=== PATIENT | female | born 1960 ===

== ENCOUNTER 2017-03-07 14:34 | Emergency (ER) | payer OTHER ==
[2017-03-07 14:58] VITALS: BMI 27.4
[2017-03-07] MEDS ORDERED: Sodium Chloride 0.9% 1,000 ML IV STA (15:13)
--- NOTE | 2017-03-07 15:13 | C.PDOC ---
History Of Present Illness 56 y/o F c no PMHx p/w abdominal pain x 8 days. Pain is LLQ, radiates to L flank , constant, moderate in severity, associated with mild nausea and allievated by urination. Denies fever, chills, vomiting, dyspnea, diarrhea, vaginal bleeding, bloody or black stool, dysuria. No PMD Time Seen by Provider: 03/07/17 15:06 Chief Complaint (Nursing): Abdominal Pain Past Medical History Vital Signs: Last Vital Signs Temp 97.5 F L 03/07/17 16:57 Pulse 78 03/07/17 16:57 Resp 18 03/07/17 16:57 BP 112/63 03/07/17 16:57 Pulse Ox 99 03/07/17 16:57 Family History: States: No Known Family Hx - Social History Hx Alcohol Use: No Hx Substance Use: No - Immunization History Hx Tetanus Toxoid Vaccination: No Hx Influenza Vaccination: No Hx Pneumococcal Vaccination: No Review Of Systems Except As Marked, All Systems Reviewed And Found Negative. Constitutional: Negative for: Fever Cardiovascular: Negative for: Chest Pain Physical Exam - Physical Exam Additional Physical Exam Comments: Constitutional: No acute distress. Head: Normocephalic. Atraumatic. Eyes: PERRL. EOMI. ENT: Moist mucous membranes. Neck: Supple. Cardiovascular: Regular rate. Radial pulses 2+ bilaterally. Chest: No tenderness. Respiratory: Clear to auscultation bilaterally. GI: Soft. LLQ/Suprapubic tenderness. Back: No CVA tenderness. Musculoskeletal: No tenderness or swelling of extremities. Skin: No rash. Neurologic: Alert, no focal deficit. ED Course And Treatment - Laboratory Results Result Diagrams: 03/07/17 15:31 03/07/17 15:31 O2 Sat by Pulse Oximetry: 100 Medical Decision Making Medical Decision Making: IMPRESSION: Diverticulosis of the rectosigmoid colon with mild associated inflammatory stranding may represent acute diverticulitis. Patient in no acute distress. Labs unremarkable. Vital signs normal. Will discharge home, antibiotics, f/u PMD, return to ED for worsening abdominal pain , vomiting, dyspnea, or fever. Disposition - Disposition Disposition: HOME/ ROUTINE Disposition Time: 17:50 Condition: STABLE Prescriptions: levoFLOXacin [Levaquin] 1 tab PO DAILY #10 tab Metronidazole [Flagyl] 500 mg PO Q8 #30 tab Instructions: Diverticulitis (ED) Forms: [employer] (Georgian) - Clinical Impression Clinical Impression: Diverticulitis
[2017-03-07] MEDS ORDERED: Sodium Chloride 0.9% 1,000 ML ONE (15:19)
[2017-03-07 15:36] LABS: BASO # 0.1 K/uL (0.0-0.2); BASO % 1.1 % (0.0-2.0); EOS # 0.9 K/uL (0.0-0.7); EOS % 11.8 % (0.0-4.0); HEMOGLOBIN 12.6 g/dL (11.0-16.0); LYMPH # 2.2 K/uL (1.0-4.3); LYMPH % 29.8 % (20.0-40.0); MEAN CELL VOLUME 86.3 fL (81.0-99.0); MEAN CORPUSCULAR HEMOGLOBIN 29.4 pg (27.0-31.0); MEAN CORPUSCULAR HGB CONC 34.1 g/dL (33.0-37.0); MONO # 0.5 K/uL (0.0-0.8); MONO % 6.6 % (0.0-10.0); NEUT # 3.8 K/uL (1.8-7.0); NEUT % 50.7 % (50.0-75.0); NRBC % 0.1 % (0.0-2.0); RBC 4.3 Mil/uL (3.80-5.20); RED CELL DISTRIBUTION WIDTH 12.6 % (11.5-14.5); WHITE BLOOD COUNT 7.4 K/uL (4.8-10.8)
[2017-03-07 15:40] LABS: HCG,QUALITATIVE URINE NEGATIVE (NEGATIVE)
[2017-03-07 15:44] LABS: SQUAMOUS EPITHIAL 4 /hpf (0-5); URINE BILIRUBIN NEGATIVE (NEGATIVE); URINE BLOOD NEGATIVE (NEGATIVE); URINE CLARITY Clear (Clear); URINE COLOR Yellow (YELLOW); URINE GLUCOSE (UA) NORMAL (Normal); URINE LEUKOCYTE ESTERASE NEG Leu/uL (Negative); URINE NITRATE NEGATIVE (NEGATIVE); URINE PROTEIN NEGATIVE (NEGATIVE); URINE UROBILINOGEN NORMAL mg/dL (0.2-1.0)
[2017-03-07 15:51] LABS: GFR AFRICAN-AMERICAN > 60; GFR NON-AFRICAN AMERICAN > 60; LIPASE 80 U/L (23-300)
[2017-03-07 15:55] LABS: ALBUMIN 4.5 g/dL (3.5-5.0); ALT/SGPT 49 U/L (9-52); AST/SGOT 66 U/L (14-36); BLOOD UREA NITROGEN 11 mg/dL (7-17)
[2017-03-07] MEDS ORDERED: Iodixanol 320 MG/ML 100 ML BOTTLE IV ONE (16:29)
--- NOTE | 2017-03-07 17:36 | CT ---
PROCEDURE: CT Abdomen and Pelvis with contrast HISTORY: LLQ pain COMPARISON: None available. TECHNIQUE: Contrast dose: 100 mL Visipaque Radiation dose: Total exam DLP = 736.38 mGy-cm. This CT exam was performed using one or more of the following dose reduction techniques: Automated exposure control, adjustment of the mA and/or kV according to patient size, and/or use of iterative reconstruction technique. FINDINGS: LOWER THORAX: No visible consolidation, pleural effusion, or pneumothorax. Small hiatal hernia/distal esophageal wall thickening. LIVER: Unremarkable. GALLBLADDER AND BILE DUCTS: Unremarkable. PANCREAS: Unremarkable. SPLEEN: Unremarkable. ADRENALS: Unremarkable. KIDNEYS AND URETERS: The kidneys enhance symmetrically. No hydronephrosis or obstructing calculus identified. VASCULATURE: No aortic aneurysm. BOWEL: Stomach is nondistended. Lack of oral contrast limits evaluation for bowel pathology. Bowel loops appear within normal limits of caliber without evidence of obstruction. Diverticulosis of the rectosigmoid colon with mild associated inflammatory stranding may represent acute diverticulitis. APPENDIX: The appendix appears within normal limits of caliber. No secondary signs of acute appendicitis. PERITONEUM: No significant free fluid. No definite free air. LYMPH NODES: No bulky adenopathy identified. BLADDER: Unremarkable. REPRODUCTIVE: Fibroid uterus. BONES: No acute osseous abnormality is detected. OTHER FINDINGS: Tiny fat containing umbilical hernia. IMPRESSION: Diverticulosis of the rectosigmoid colon with mild associated inflammatory stranding may represent acute diverticulitis. Fibroid uterus.
[2017-03-07 17:52] VITALS: O2SAT 100
[2017-03-07 22:44] VITALS: BP 132/73; PULSE 66; RESP 20; TEMP 98.3
== END 2017-03-07 18:50 | disposition home or self-care (01) ==
LOC: C.ER 14:34
DX: K57.92 Diverticulitis of intestine, part unspecified, without perforation or abscess without bleeding (principal)
CPT/HCPCS: 74177; 80053; 81001; 83690; 84703; 85025; 96374; 96375; 99285; J1885; J2405; J7040; Q9967

== ENCOUNTER 2017-10-02 11:25 | Emergency (ER) | payer OTHER ==
[2017-10-02 11:26] VITALS: BMI 27.4
[2017-10-02 11:49] VITALS: BP 123/66; PULSE 67; RESP 16; TEMP 98.2; O2SAT 97
--- NOTE | 2017-10-02 13:34 | C.PDOC ---
History Of Present Illness 57 y/o female presents to ED with c/o right shoulder pain for 3 days. Patient reports she noticed mild swelling and took Ampicillin. Patient denies injury, numbness to arm, chest pain, sob or any other complaints at this time. Time Seen by Provider: 10/02/17 11:43 Chief Complaint (Nursing): Upper Extremity Problem/Injury History Per: Patient History/Exam Limitations: no limitations Onset/Duration Of Symptoms: Days Current Symptoms Are (Timing): Still Present Past Medical History Reviewed: Historical Data, Nursing Documentation, Vital Signs Vital Signs: Last Vital Signs Temp 98.2 F 10/02/17 11:48 Pulse 67 10/02/17 11:48 Resp 16 10/02/17 11:48 BP 123/66 10/02/17 11:48 Pulse Ox 97 10/02/17 13:34 - Medical History PMH: No Chronic Diseases Surgical History: No Surg Hx Family History: States: No Known Family Hx - Social History Hx Alcohol Use: No Hx Substance Use: No - Immunization History Hx Tetanus Toxoid Vaccination: No Hx Influenza Vaccination: No Hx Pneumococcal Vaccination: No Review Of Systems Cardiovascular: Negative for: Chest Pain Respiratory: Negative for: Shortness of Breath Musculoskeletal: Positive for: Shoulder Pain. Negative for: Neck Pain Skin: Negative for: Rash Physical Exam - Physical Exam Appears: Non-toxic, No Acute Distress Skin: Warm, Dry, No Rash Head: Atraumatic, Normacephalic Eye(s): bilateral: Normal Inspection Oral Mucosa: Moist Extremity: Tenderness (mild to right AC joint), Capillary Refill (<2 seconds), No Deformity Extremity: Bilateral: Normal ROM Neurological/Psych: Oriented x3, Normal Motor, Normal Sensation ED Course And Treatment O2 Sat by Pulse Oximetry: 97 (RA) Pulse Ox Interpretation: Normal Disposition - Disposition Referrals: [facility] [Outside] [facility] [Outside] Disposition: HOME/ ROUTINE Disposition Time: 12:40 Condition: GOOD Additional Instructions: CONCEPCIÓN MATTHEWS, thank you for letting us take care of you today. The emergency medical care you received today was directed at your acute symptoms. If you were prescribed any medication, please fill it and take as directed. It may take several days for your symptoms to resolve. Return to the Emergency Department if your symptoms worsen, do not improve, or if you have any other problems. Please contact your doctor or call one of the physicians/clinics you have been referred to that are listed on the Patient Visit Information form that is included in your discharge packet. Bring any paperwork you were given at discharge with you along with any medications you are taking to your follow up visit. Our treatment cannot replace ongoing medical care by a primary care provider outside of the emergency department. Thank you for allowing the [facility] team to be part of your care today. Follow up with the clinic in 5-7 days for re-evaluation and further management. CONCEPCIÓN BYRON, cornelia por dejarnos atenderlo hoy. La atencin mdica de emergencia que recibi hoy estaba dirigida a manjula sntomas agudos. Si le prescribieron algn medicamento, llnelo y tome segn las indicaciones. Manjula s ntomas pueden tardar varios rowley en resolverse. Regrese al Departamento de Emergencia si manjula sntomas empeoran, no mejoran o si tiene algn otro problema. Comunquese con acevedo mdico o llame a ezequiel de los mdicos / clnicas a los que bueno sido referido que figura en el formulario de Informacin de visita del paciente que se incluye en acevedo paquete de kristian. Traiga todos los documentos que recibi al momento del kristian junto con los medicamentos que est tomando en acevedo visita de seguimiento. Nuestro tratamiento no puede reemplazar la atencin mdica en curso por un proveedor de atencin primaria fuera del departamento de emergencia. Cornelia por permitir que el equipo de [facility] sea parte de acevedo cuidado hoy. Rebecca un seguimiento con la clnica en 5-7 rowley para la reevaluacin y la administracin adicional. Prescriptions: Ibuprofen [Motrin] 600 mg PO Q6 PRN #20 tab PRN Reason: Pain, Moderate (4-7) Instructions: Shoulder Sprain (DC) Forms: Gen Discharge Inst Armenian, [employer] (Armenian) Print Language: CAMEROONIAN - Clinical Impression Clinical Impression: Shoulder sprain - Scribe Statement The provider has reviewed the documentation as recorded by the Abimbolaibroosevelt Hernandez All medical record entries made by the Mirella were at my direction and personally dictated by me. I have reviewed the chart and agree that the record accurately reflects my personal performance of the history, physical exam, medical decision making, and the department course for this patient. I have also personally directed, reviewed, and agree with the discharge instructions and disposition.
--- NOTE | 2017-10-02 13:35 | RAD ---
Date of service: 10/02/2017 PROCEDURE: Radiographs of the Right Shoulder HISTORY: r/o fx COMPARISON: No prior. FINDINGS: BONES: Bone alignment and mineralization are normal. There is no acute displaced fracture or bone destruction. JOINTS: Normal. Glenohumeral and acromioclavicular joints preserved. No osteoarthritis. SOFT TISSUES: Normal. OTHER FINDINGS: None. IMPRESSION: No acute fracture or dislocation.
== END 2017-10-02 13:06 | disposition home or self-care (01) ==
LOC: C.ER 11:25
DX: S43.401A Unspecified sprain of right shoulder joint, initial encounter (principal); X58.XXXA Exposure to other specified factors, initial encounter

== ENCOUNTER 2017-11-20 12:22 | Emergency (ER) | payer OTHER ==
[2017-11-20 12:33] VITALS: BMI 23.3
[2017-11-20 12:37] VITALS: TEMP 98
[2017-11-20] MEDS ORDERED: Aspirin 325 mg EC Tablets PO STA (14:07)
[2017-11-20] MEDS ORDERED: Nitroglycerin 2% Ointment Foilpak UD TOP STA (14:07)
--- NOTE | 2017-11-20 14:07 | C.PDOC ---
History Of Present Illness 57 year old female presents to the ED complaining of mid-sternal chest pain since yesterday. Pain is described as constant, and occasionally radiates to the epigastrium. She denies any nausea, vomiting, diaphoresis, SOB, SARKAR, fever, chills, or prior history of cardiac disease. Also denies any cough, congestion, headache, or dizziness. Time Seen by Provider: 11/20/17 13:32 Chief Complaint (Nursing): Chest Pain History Per: Patient History/Exam Limitations: no limitations Onset/Duration Of Symptoms: Days Current Symptoms Are (Timing): Still Present Past Medical History Reviewed: Historical Data, Nursing Documentation, Vital Signs Vital Signs: Last Vital Signs Temp 98.0 F 11/20/17 12:33 Pulse 62 11/20/17 12:33 Resp 18 11/20/17 12:33 BP 161/78 H 11/20/17 12:33 Pulse Ox 99 11/20/17 12:33 - Medical History PMH: No Chronic Diseases Surgical History: No Surg Hx Family History: States: No Known Family Hx - Social History Hx Tobacco Use: No Hx Alcohol Use: No Hx Substance Use: No - Immunization History Hx Tetanus Toxoid Vaccination: No Hx Influenza Vaccination: No Hx Pneumococcal Vaccination: No Review Of Systems Except As Marked, All Systems Reviewed And Found Negative. Constitutional: Negative for: Fever, Chills, Sweats Eyes: Negative for: Vision Change ENT: Negative for: Nose Congestion Cardiovascular: Positive for: Chest Pain. Negative for: Palpitations Respiratory: Negative for: Cough, Shortness of Breath, SOB with Excertion Gastrointestinal: Negative for: Nausea, Vomiting Neurological: Negative for: Weakness, Numbness, Headache, Dizziness Physical Exam - Physical Exam Appears: Non-toxic, No Acute Distress Skin: Normal Color, Warm, Dry Head: Atraumatic, Normacephalic Eye(s): bilateral: Normal Inspection, PERRL, EOMI Oral Mucosa: Moist Neck: Normal ROM Chest: Symmetrical, No Deformity, No Tenderness Cardiovascular: Rhythm Regular, No Murmur Respiratory: Normal Breath Sounds, No Rales, No Rhonchi, No Wheezing, Other (NARD) Gastrointestinal/Abdominal: Soft, No Tenderness, No Distention Extremity: Bilateral: Atraumatic, Normal Color And Temperature, Normal ROM Pulses: Left Radial: Normal, Right Radial: Normal Neurological/Psych: Oriented x3, Normal Speech ED Course And Treatment - Laboratory Results Result Diagrams: 11/20/17 14:16 11/20/17 14:16 ECG: Interpreted By Me, Viewed By Me ECG Rhythm: Sinus Rhythm Rate From EC O2 Sat by Pulse Oximetry: 99 (RA) Pulse Ox Interpretation: Normal Reevaluation Time: 15:47 Reassessment Condition: Improved (NO RECUR CP SINCE INITIAL EVAL. ASYMPT. VSS) Medical Decision Making Medical Decision Making: Impression: 57 year old with chest pain Plan: --EKG --CMP --Lipase --Troponin I --CBC --Chest x-ray --NTG 2% top --Aspirin 325mg po --Reassess and disposition Disposition Counseled Patient/Family Regarding: Studies Performed, Diagnosis, Need For Followup - Disposition Referrals: [facility] [Outside] [facility] [Outside] Disposition: HOME/ ROUTINE Disposition Time: 15:48 Condition: GOOD Instructions: Chest Pain (DC) Forms: [facility] [facility] (Colombian) Print Language: SLOVENIAN - Clinical Impression Clinical Impression: Chest pain - Scribe Statement The provider has reviewed the documentation as recorded by the Scribe (Marcie Adorno) Provider Attestation: All medical record entries made by the Scribe were at my direction and personally dictated by me. I have reviewed the chart and agree that the record accurately reflects my personal performance of the history, physical exam, medical decision making, and the department course for this patient. I have also personally directed, reviewed, and agree with the discharge instructions and disposition.
[2017-11-20 14:19] LABS: BASO # 0.1 K/uL (0.0-0.2); BASO % 0.9 % (0.0-2.0); EOS % 15.7 % (0.0-4.0); HEMOGLOBIN 14.1 g/dL (11.0-16.0); LYMPH % 30.7 % (20.0-40.0); MEAN CELL VOLUME 88.5 fL (81.0-99.0); MEAN CORPUSCULAR HEMOGLOBIN 30.7 pg (27.0-31.0); MEAN CORPUSCULAR HGB CONC 34.8 g/dL (33.0-37.0); MEAN PLATELET VOLUME 8.1 fL (7.2-11.7); MONO # 0.4 K/uL (0.0-0.8); MONO % 5.4 % (0.0-10.0); NEUT # 3.1 K/uL (1.8-7.0); NEUT % 47.3 % (50.0-75.0); RBC 4.59 Mil/uL (3.80-5.20); RED CELL DISTRIBUTION WIDTH 12.6 % (11.5-14.5); WHITE BLOOD COUNT 6.5 K/uL (4.8-10.8)
--- NOTE | 2017-11-20 14:30 | RAD ---
Date of service: 11/20/2017 HISTORY: chest pain COMPARISON: No prior. TECHNIQUE: Chest PA and lateral FINDINGS: LUNGS: No active pulmonary disease. PLEURA: No significant pleural effusion identified. No pneumothorax apparent. CARDIOVASCULAR: Normal. OSSEOUS STRUCTURES: No significant abnormalities. VISUALIZED UPPER ABDOMEN: Normal. OTHER FINDINGS: None. IMPRESSION: No active disease.
[2017-11-20 14:35] LABS: ALB/GLOB RATIO 1.3 (1.0-2.1); ALBUMIN 4.6 g/dL (3.5-5.0); ALT/SGPT 56 U/L (9-52); AST/SGOT 35 U/L (14-36); BLOOD UREA NITROGEN 9 mg/dL (7-17); CALCIUM 9.7 mg/dl (8.6-10.4); GFR NON-AFRICAN AMERICAN > 60; LIPASE 50 U/L (23-300)
[2017-11-20] MEDS ORDERED: Aspirin 325 mg EC Tablets PO ONE (14:51)
[2017-11-20] MEDS ORDERED: Nitroglycerin 2% Ointment Foilpak UD TOP ONE (14:51)
[2017-11-20 15:59] VITALS: BP 125/62; PULSE 78; RESP 18; O2SAT 97
--- NOTE | 2017-11-21 23:06 | CARD ---
APPROVED REPORT Date of service: 11/20/2017 EKG Measurement Heart [id number] <Conclusion> Normal sinus rhythm Normal ECG
== END 2017-11-20 16:04 | disposition home or self-care (01) ==
LOC: C.ER 12:22
DX: R07.9 Chest pain, unspecified (principal)